=== PATIENT | female | born 1945 | race Caucasian/White ===

== ENCOUNTER 2019-05-29 16:29 | Emergency (ER) | payer OTHER, MEDICARE ==
[2019-05-29 16:36] VITALS: TEMP 97.8; BMI 31.4
--- NOTE | 2019-05-29 16:58 | PDOC ---
Attending Attestation - Resident Resident Name: Abhishek Reddyalfredoyobany S - ED Attending Attestation I have performed the following: I have examined & evaluated the patient, The case was reviewed & discussed with the resident, I agree w/resident's findings & plan, Exceptions are as noted - HPI HPI: 05/29/19 16:58 this 73 yo female BIBA p/w nausea and vomiting 05/29/19 17:05 - Physicial Exam PE: 05/29/19 17:36 alert,conversant 73 yo female p/w positional dizziness and vomiting head ncat neck supple lungs cta b/l cvs [id number] abd no rebound,no tenderness extremities there is a bandage on the lateral surface of her rt femur,no cellulitis,no drainage,no purulence ,sensation intact neuro axox3 05/29/19 18:10 - Medical Decision Making 05/29/19 17:08 alert,conversant 73 yo female reports vertigo assoc with 2 episodes of vomiting after wheeling herself into her room at [facility] where she is undergoing rehab for a fracture of her rt femur that occurred May 03 05/29/19 17:12 PMh htn, hyperlipdemia psh rt hip orif 05/29/19 17:19 ekg nsr @ 64 bpm,norrmal QTc ,inverted t waves ROS : this pt has no headache,no chest pain ,no dyspnea,no visual disturbances, no limb ataxia,no neck pain 05/29/19 18:38 his labs reveal significant elevation and her liver function tests. We have prior labs from May 25 this week that shows normal liver function tests. Patient states that she did have her gallbladder removed sometime in the past. She does not have any epigastric pain. We will do imaging studies to take a closer look at her biliary system and pancreas 05/29/19 21:55 CT SCAN of abdomen and pelvis with contrast did not show any acute pancreatitis or pancreatic lesion or acute abdominal emergency pt is Asymptomatic and has no abdominal pain or nausea or vomiting at this time.Her vertigo resolved. Patient will be discharged back to the senior living with a copy of her lab work and a copy of the dictated ct scan of abd/pel 05/29/19 21:56
[2019-05-29] MEDS ORDERED: ONDANSETRON 4 MG/2 ML VIAL IVPUSH ONE (17:15)
[2019-05-29] MEDS ORDERED: ONDANSETRON 4 MG/2 ML VIAL ONE (17:27)
--- NOTE | 2019-05-29 17:29 | PDOC ---
History of Present Illness - General Chief Complaint: Nausea/Vomiting Stated Complaint: VOMITING Time Seen by Provider: 05/29/19 16:48 History Source: Patient - History of Present Illness Initial Comments: 05/29/19 17:20 73 y/o/f from [facility] rehab due to a Right femur fracture that occurred on here for dizziness that started this afternoon. Patient states she was using her wheelchair to go back to her room when she started to feel dizzy. When she got up to get her food tray she felt dizzier and grabbed her food tray to steady herself. She states that she felt like the room was spinning when she felt dizzy. She did not fall down or lose consciousness. She was given Meclizine 12.5mg at [facility] with improvement to her dizziness. She vomited twice after taking Meclizine. There was no blood in her vomit. She no longer feels dizzy but still feels nauseous and "gassy." She had a similar episode of dizziness one week ago but it resolved on its own and she was not sent to the hospital at that time. She denies any diarrhea, numbness, tingling, headache, fever, chest pain, changes in fever, abd pain, SOB, cough, or other symptoms. Patient states she has not had the dressing from her ORIF surgery changed yet as she has not been able to make an appointment. PMHx: HTN, HLD SHx: surgery for Right femur fracture that occurred on 05/03, [facility] - 2003 Social: denies alcohol and tobacco Past History - Past Medical History Allergies/Adverse Reactions: Allergies Allergy/AdvReac Type Severity Reaction Status Date / Time amoxicillin Allergy Severe Difficulty Verified 05/29/19 16:36 Breathing cinnamon Allergy Severe Difficulty Verified 05/29/19 16:36 Breathing codeine Allergy Severe Difficulty Verified 05/29/19 16:36 Breathing Penicillins Allergy Severe Difficulty Verified 05/29/19 16:36 Breathing raspberry Allergy Mild Hives Verified 05/29/19 16:36 Home Medications: Ambulatory Orders Aa/Hydrolyzed Collagen, Whey [Lps Neutral Flavor Liquid] 30 ml PO DAILY Acetaminophen [Tylenol] 975 mg PO Q8H PRN 05/29/19 Ascorbic Acid [Vitamin C -] 500 mg PO DAILY 05/29/19 Atenolol [Tenormin -] 50 mg PO BID 05/29/19 Brimonidine Tartrate [Alphagan 0.15% -] 1 drop OU DAILY 05/29/19 Clopidogrel Bisulfate [Plavix] 75 mg PO DAILY 05/29/19 Docusate Sodium [Colace] 100 mg PO TID 05/29/19 Enoxaparin [Lovenox -] 40 mg SQ DAILY 05/29/19 HYDROmorphone [Dilaudid -] 2 mg PO Q4H PRN 05/29/19 Lisinopril 5 mg PO DAILY 05/29/19 Meclizine HCl 12.5 mg PO Q8H PRN 05/29/19 Nutritional Supplement [Hi-Albino] 4 oz PO DAILY 05/29/19 Polyethylene Glycol 3350 17 gm PO DAILY 05/29/19 Simvastatin [Zocor -] 40 mg PO HS 05/29/19 Sulfamethoxazole/Trimethoprim [Bactrim Ds Tablet] 1 each PO BID #10 tablet MDD 1 tab 05/29/19 Anemia: No Asthma: Yes Cancer: No Cardiac Disorders: Yes (MVP) CVA: No COPD: No CHF: No Dementia: No Diabetes: No GI Disorders: No Disorders: No HTN: Yes Hypercholesterolemia: Yes Liver Disease: No Seizures: No Thyroid Disease: No - Surgical History Cholecystectomy: Yes Orthopedic Surgery: Yes (LEFT HIP FRACTURE-PINNING) - Suicide/Smoking/Psychosocial Hx Smoking History: Never smoked Have you smoked in the past 12 months: No Hx Alcohol Use: No Drug/Substance Use Hx: No Substance Use Type: None Hx Substance Use Treatment: No Review of Systems - Review of Systems Constitutional: No: Chills, Fever HEENTM: No: Recent change in vision Respiratory: No: Cough, Shortness of Breath Cardiac (ROS): No: Chest Pain, Lightheadedness ABD/GI: Yes: Nausea, Vomiting. No: Diarrhea : No: Dysuria, Hematuria Musculoskeletal: Yes: Joint Pain (right hip) Integumentary: No: Rash Neurological: Yes: Dizziness. No: Headache, Numbness Endocrine: No: Excessive Sweating *Physical Exam - Vital Signs Last Vital Signs Temp Pulse Resp BP Pulse Ox 97.8 F 75 18 116/93 100 05/29/19 16:33 05/29/19 16:33 05/29/19 16:33 05/29/19 16:33 05/29/19 16:33 - Physical Exam General Appearance: Yes: Nourished, Appropriately Dressed HEENT: positive: EOMI, Normal Voice, Symmetrical. negative: Pharyngeal Erythema Neck: positive: Trachea midline, Supple Respiratory/Chest: positive: Lungs Clear, Normal Breath Sounds. negative: Accessory Muscle Use Cardiovascular: positive: Regular Rhythm, Regular Rate, S1, S2 Gastrointestinal/Abdominal: positive: Normal Bowel Sounds, Soft. negative: Tender Musculoskeletal: negative: CVA Tenderness Extremity: positive: Normal Capillary Refill. 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 Patient states she was using her wheelchair to go back to her room when she started to feel dizzy. When she got up to get her food tray she felt dizzier and grabbed her food tray to steady herself. She states that she felt like the room was spinning when she felt dizzy. She did not fall down or lose consciousness. She was given Meclizine 12.5mg at [facility] with improvement to her dizziness. Patient vomited twice, no blood. Had a similar episode of dizziness one week ago. -Patient is on Enoxaparin and Lovenox due to recent ORIF surgery. -Dizziness is reproducible on physical exam with positional movement of the patient's head. -Workup with CBC, CMP, UA, Cardiac profile, EKG, CT head scan. -EKG reviewed, normal sinus rhythm with no acute changes. 05/29/19 18:03 -CBC grossly normal. -UA positive for 2+ Leuk Esterase -CMP pending 05/29/19 18:11 -Will treat patient with Bactrim IV here. 05/29/19 19:06 -CMP showed elevated LFTs. Compared [facility] shows that patients alk phos was 347 and LFTs were normal. -Will repeat CMP to confirm if LFTs are elevated or there was a possible lab error. -Will get CT abd&pelvis if LFTs are still elevated. -Patient had a cholecystectomy in 2003. 05/29/19 19:52 -add on lipase was also elevated. -ordered CT abd&pelvic with contrast ordered to rule out GI pathology 05/29/19 20:31 -Repeat CMP still shows elevated LFTs, alk phos, and Lipase. -CT head read, negative for intracranial pathology. 05/29/19 21:11 -CT abd&pelvis negative for any acute pathology. -Patient is asymptomatic, not complaining of any symptoms. -Explained results of imaging and labs to patient. Will give patient a copy of labs and imaging. -Will discharge patient home with instructions to follow up with PCP regarding lab results. *DC/Admit/Observation/Transfer Diagnosis at time of Disposition: Vertigo UTI (urinary tract infection) Qualifiers: Urinary tract infection type: site unspecified Hematuria presence: without hematuria Qualified Code(s): N39.0 - Urinary tract infection, site not specified - Discharge Dispostion Disposition: HOME Condition at time of disposition: Stable - Prescriptions Prescriptions: Sulfamethoxazole/Trimethoprim [Bactrim Ds Tablet] 1 each PO BID #10 tablet MDD 1 tab - Referrals - Patient Instructions Printed Discharge Instructions: DI for Vertigo, DI for Urinary Tract Infection (UTI) Additional Instructions: If you have worsening dizziness, abdominal pain, nausea, vomiting, fever, or other concerns return to the ED. A CT scan of your abdomen and pelvis was performed today due to elevated liver enzymes, however no masses, lesions, or evidence of pancreatitis was found. Your liver enzymes were elevated on labwork today, please follow up with your primary care doctor in the next few days to discuss further workup. You were diagnosed with a UTI here, please waste picker your prescription and take as directed. - Post Discharge Activity
[2019-05-29 17:41] LABS: BASO % 0.3 % (0-2.0); EOS % 0.5 % (0-4.5); HEMATOCRIT 33.9 % (32.4-45.2); HEMOGLOBIN 11.3 GM/dL (10.7-15.3); LYMPH % 15.8 % (8-40); MCH 32.9 pg (25.7-33.7); MCHC 33.2 g/dl (32.0-36.0); MEAN PLT VOLUME 9.5 fl (7.5-11.1); MONO % 10.6 % (3.8-10.2); NEUT % 72.8 % (42.8-82.8); PLATELET COUNT 214 K/MM3 (134-434); RBC 3.43 M/mm3 (3.60-5.2); RDW 14.2 % (11.6-15.6); WHITE BLOOD COUNT 5.7 K/mm3 (4.0-10.0)
[2019-05-29 17:48] LABS: EPI CELLS 12.5 /HPF (0-5/HPF); HYALINE CASTS 16 /lpf (0-8); URINE APPEARANCE CLEAR; URINE BACTERIA 5.6 /hpf (NEGATIVE); URINE BILIRUBIN NEGATIVE (NEGATIVE); URINE COLOR YELLOW; URINE GLUCOSE (UA) NEGATIVE (NEGATIVE); URINE KETONE NEGATIVE (NEGATIVE); URINE LEUK ESTERASE 2+ (NEGATIVE); URINE NITRITE NEGATIVE (NEGATIVE); URINE PROTEIN NEGATIVE (NEGATIVE); URINE RBC 4 /hpf (0-4); URINE WBC 27 /hpf (0-5)
[2019-05-29] MEDS ORDERED: SULFAMETHOXAZOLE/TRIMETHOPRIM 800MG/160MG D.S. TABLET PO ONE (18:08)
[2019-05-29] MEDS ORDERED: SULFAMETHOXAZOLE/TRIMETHOPRIM 800MG/160MG D.S. TABLET ONE (18:12)
[2019-05-29 18:19] LABS: ALBUMIN 3.7 g/dl (3.4-5.0); ALK PHOS 708 U/L (45-117); ANION GAP 9 MMOL/L (8-16); BILIRUBIN,TOTAL 0.9 mg/dL (0.2-1); BLOOD UREA NITROGEN 15.2 mg/dL (7-18); CALCIUM 8.8 mg/dL (8.5-10.1); CHLORIDE 103 mmol/L (98-107); CO2 24 mmol/L (21-32); CREATININE 1.1 mg/dL (0.55-1.3); GLUCOSE,RANDOM 109 mg/dL (74-106); SGOT/AST 580 U/L (15-37); SGPT/ALT 385 U/L (13-61); SODIUM 136 mmol/L (136-145); TOT PROT 6.6 g/dl (6.4-8.2)
[2019-05-29 19:39] LABS: LIPASE 15436 U/L (73-393)
[2019-05-29 20:15] LABS: ALBUMIN 3.7 g/dl (3.4-5.0); BILIRUBIN,TOTAL 0.8 mg/dL (0.2-1); BLOOD UREA NITROGEN 14.2 mg/dL (7-18); CALCIUM 8.9 mg/dL (8.5-10.1); CREATININE 0.9 mg/dL (0.55-1.3); POTASSIUM 4.1 mmol/L (3.5-5.1); TOT PROT 6.3 g/dl (6.4-8.2)
[2019-05-29 22:36] VITALS: BP 149/68; PULSE 77
--- NOTE | 2019-05-30 10:14 | EKG ---
Test Reason : Blood Pressure : / mmHG Vent. Rate : 064 BPM Atrial Rate : 064 BPM P-R Int : 170 ms QRS Dur : 078 ms QT Int : 446 ms P-R-T Axes : 048 -09 006 degrees QTc Int : 460 ms NORMAL SINUS RHYTHM MODERATE VOLTAGE CRITERIA FOR LVH, MAY BE NORMAL VARIANT BORDERLINE ECG WHEN COMPARED WITH ECG OF 04-JUN-2016 09:53, NO SIGNIFICANT CHANGE WAS FOUND Confirmed by DANIEL WOLFF, LUKAS ([id number]) on 05/30/2019 10:14:38 AM Referred By: Confirmed By:LUKAS SANCHEZ MD
== END 2019-05-29 22:34 ==
LOC: JER 16:29
PROC: 3E033GC Introduction of Other Therapeutic Substance into Peripheral Vein, Percutaneous Approach (ICD-10-PCS; principal; 2019-05-29)
DX: N39.0 Urinary tract infection, site not specified (principal); R42 Dizziness and giddiness; I10 Essential (primary) hypertension; E78.5 Hyperlipidemia, unspecified; Z87.81 Personal history of (healed) traumatic fracture; Z98.890 Other specified postprocedural states; Z79.01 Long term (current) use of anticoagulants
CPT/HCPCS: 36415; 70450-TC; 74177-TC; 80053; 81003; 82550; 83690; 84484; 85025; 87086; 93005; 93010; 96374; 99285-25